=== PATIENT | female | born 1980 | race Caucasian/White ===

== ENCOUNTER 2024-06-08 16:11 | Emergency (ER) | payer MEDICAID ==
[~2024-06-08] VITALS: Ht 157.5 cm; Wt 104.5 kg
[2024-06-08 16:44] LABS: COVID AG,FIA SOURCE NASAL SWAB
[2024-06-08 16:47] LABS: SARS-COV2 (COVID) ANTIGEN,FIA Negative (Negative)
[2024-06-08] MEDS: ACETAMINOPHEN 500 MG TABLET PO ONE (17:27)
[2024-06-08 20:20] LABS: INFLUENZA A-RTPCR,COMBO NEGATIVE (NEGATIVE); INFLUENZA B-RTPCR,COMBO POSITIVE (NEGATIVE); RESPIRATORY SYNCYTIAL VRS-PCR NEGATIVE (NEGATIVE); SARS COVID19 RTPCR, COMBO NEGATIVE (NEGATIVE)
[2024-06-08] MEDS ORDERED: OSEL75CA45 PO (21:08)
[2024-06-08] MEDS ORDERED: IBUP-1492 PO (21:08)
[2024-06-08] MEDS: OSELTAMIVIR PHOSPHATE 75 MG CAPSULE PO ONE (21:13)
[2024-06-08 21:16] VITALS: BP 91/64; PULSE 113; RESP 18; TEMP 98.6; O2SAT 98
== END 2024-06-08 21:20 | disposition home or self-care (01) ==
LOC: EMS 16:11
DX: J10.1 Influenza due to other identified influenza virus with other respiratory manifestations (principal); J45.909 Unspecified asthma, uncomplicated; Z90.49 Acquired absence of other specified parts of digestive tract; Z88.0 Allergy status to penicillin; Z20.822 Contact with and (suspected) exposure to COVID-19
CPT/HCPCS: 99283; 0241U; 87426